=== PATIENT | female | born 2000 | race Hispanic/Latino ===

== ENCOUNTER 2024-02-14 20:36 | Day surgery (SDC) | payer OTHER ==
[2024-02-14 20:58] VITALS: BMI 31.7
[2024-02-14] MEDS ORDERED: hydrALAZINE 20 MG/ML VIAL SLOW IVP PRN (21:21)
== END 2024-02-14 23:05 | disposition home or self-care (01) ==
LOC: CSHERS 20:36 → CSHLD/OP 23:05
PROVIDERS: ATTEND Family Medicine
DX: O47.1 False labor at or after 37 completed weeks of gestation (principal); Z79.899 Other long term (current) drug therapy; Z3A.38 38 weeks gestation of pregnancy

== ENCOUNTER 2024-02-15 01:32 | Inpatient (IN) | payer MEDICAID, OTHER, SELFPAY ==
[2024-02-15 01:57] VITALS: BMI 30.7
[2024-02-15] MEDS ORDERED: hydrALAZINE 20 MG/ML VIAL SLOW IVP PRN ×3 (02:09→12:32)
[2024-02-15] MEDS ORDERED: Lactated Ringer's 1,000 ML IV SCH (02:15)
[2024-02-15] MEDS: fentaNYL 50 mcg/mL 1 mL Vial SLOW IVP SCH (02:24)
[2024-02-15 02:57] LABS: #Basophils 0.05 10x3/uL (0.0-0.2); #Eosinphils 0.63 10x3/uL (0.0-0.5); #Monocytes 0.92 10x3/uL (0.0-1.1); #Neutrophils 9.42 10x3/uL (1.5-8.4); %Basophils 0.4 % (0.0-2.0); %Eosinophils 4.8 % (0.0-6.0); %Lymphocytes 15.2 % (18.0-47.0); %Neutrophils 72.1 % (40.0-75.0); ALT (SGPT) 17 U/L (8-55); AST (SGOT) 16 U/L (5-34); Albumin 3.1 g/dL (3.5-5.0); Alkaline Phosphatase 180 U/L (40-110); Anion Gap 15 mmol/L (10-20); BUN (Urea Nitrogen) Less than 4 mg/dL (7.0-18.7); Bilirubin, Total 0.5 mg/dL (0.2-1.2); Calc. Creatinine Clearance 178 mL/min (70-130); Calcium 8.8 mg/dL (7.8-10.44); Carbon Dioxide 20 mmol/L (22-29); Chloride 107 mmol/L (98-107); Estimated GFR 133; Globulin 3.4 g/dL (2.4-3.5); Glucose 86 mg/dL (70-105); Hematocrit 37.8 % (34.9-44.5); Hemoglobin 13.5 g/dL (12.0-15.5); Mean Corpuscular HGB CONC 35.7 g/dL (32.0-36.0); Mean Corpuscular Volume 81.1 fL (81.6-98.3); Mean Platelet Volume 10.6 fL (7.4-10.4); Platelet Count 237 10x3/uL (150-450); Potassium 3.5 mmol/L (3.5-5.1); Protein, Total 6.5 g/dL (6.0-8.3); RBC Distribution Width 12.7 % (11.5-14.5); Red Blood Cell (RBC) Count 4.66 10x6/uL (3.90-5.03); Sodium 138 mmol/L (136-145); White Blood Cell (WBC) Count 13.1 10x3/uL (3.5-10.5)
[2024-02-15] MEDS ORDERED: Diphenoxylate HCl/Atropine Tablet PO PRN (04:09)
[2024-02-15] MEDS ORDERED: Misoprostol 200 MCG TAB PR PRN (04:09)
[2024-02-15] MEDS ORDERED: Ibuprofen 800 MG TAB PO PRN (04:09)
[2024-02-15] MEDS ORDERED: Carboprost 250 MCG/ML AMP IM PRN (04:09)
[2024-02-15] MEDS ORDERED: Tranexamic Acid 1,000 MG/10 ML VIAL IVP PRN (04:09)
[2024-02-15] MEDS ORDERED: Methylergonovine 0.2 MG/ML VIAL IM PRN (04:09)
[2024-02-15] MEDS ORDERED: Ondansetron PF 4 MG/2 ML Vial IVP PRN ×2 (04:09→12:32)
[2024-02-15] MEDS ORDERED: Promethazine HCl 25 MG/ML VIAL IM PRN ×2 (04:09→12:32)
[2024-02-15] MEDS ORDERED: Oxytocin 30 units/NS 500 ML 500 ML IV SCH (04:15)
[2024-02-15 04:48] LABS: Syphilis Antibody Nonreactive (Nonreactive); Syphilis Antibody Index 0.09 S/CO (<1.00 Non-Reactive)
[2024-02-15 04:49] LABS: HBsAg Index 0.15 S/CO (0-0.99); Hep B Surf Ag - L&D Non-Reactive S/CO (NonReactive)
[2024-02-15] MEDS: Lidocaine 1% (PF) 30 ML VIAL SC PRN (09:45)
[2024-02-15] MEDS: Acetaminophen 500 MG TAB PO PRN (11:27)
[2024-02-15] MEDS: Oxytocin 30 units/NS 500 ML 500 ML IV SCH (11:29)
[2024-02-15] MEDS ORDERED: Boostrix 0.5 ML (Tdap) VIAL (>/=7 yrs of age) IM ONE (12:32)
[2024-02-15] MEDS ORDERED: Bisacodyl 10 MG SUPP PR PRN (12:32)
[2024-02-15] MEDS ORDERED: diphenhydrAMINE 25 MG CAP PO PRN (12:32)
[2024-02-15] MEDS ORDERED: Milk Of Magnesia 30 ML UDCUP PO PRN (12:32)
[2024-02-15] MEDS ORDERED: Lanolin Ointment 7 GM TUBE TOP PRN (12:32)
[2024-02-15] MEDS: Ibuprofen 800 MG TAB PO SCH (13:59)
[2024-02-15] MEDS: Ferrous Sulfate 325 MG TAB PO SCH (14:48)
[2024-02-15] MEDS: fentaNYL 50 mcg/mL 1 mL Vial ONE (18:30)
[2024-02-15] MEDS: Docusate 100 MG CAP PO SCH (21:16)
[2024-02-15] MEDS: HYDROcodone/Acetaminophen 5/325 mg Tablet PO PRN (21:17)
[2024-02-16] MEDS: Prenatal Vitamin 1 TAB PO SCH (08:11)
[2024-02-16 11:50] VITALS: BP 115/64; TEMP 98.3
== END 2024-02-16 17:30 | disposition home or self-care (01) | DRG 807 ==
LOC: CSHLD/OP 01:32 → CSHLD 04:18 → CSHPP 14:12
PROVIDERS: ADMIT Family Medicine; ATTEND Family Medicine
PROC: 10E0XZZ Delivery of Products of Conception, External Approach (ICD-10-PCS; principal; 2024-02-15)
PROC: 10907ZC Drainage of Amniotic Fluid, Therapeutic from Products of Conception, Via Natural or Artificial Opening (ICD-10-PCS; 2024-02-15)
PROC: 0UQMXZZ Repair Vulva, External Approach (ICD-10-PCS; 2024-02-15)
DX: O71.82 Other specified trauma to perineum and vulva (principal); Z37.0 Single live birth; Z3A.38 38 weeks gestation of pregnancy
CPT/HCPCS: 36415; 80053; 85025; 86780; 86850; 86900; 86901; 87340; 99285; J2001; J2590; J3010

== ENCOUNTER 2025-07-30 07:30 | Emergency (ER) | payer MEDICAID, SELFPAY ==
[2025-07-30 08:21] LABS: Glucose, Urine (Dipstick) Normal (Negative); Leukocyte 500 (Negative); Protein, Urine (Dipstick) 15 mg/dl (Neg-Trace); Specific Gravity, Urine 1.010 (1.005-1.030)
[2025-07-30 08:23] LABS: Pregnancy Test - Urine (BHCG) Negative (Negative); Pregu Control Background? CLEAR/WHITE (CLR/WHITE); Pregu Control Bar Appear? YES (CONTROL BAR)
[2025-07-30] MEDS ORDERED: Droperidol 5 MG/2 ML VIAL ONE (08:28)
[2025-07-30 08:31] LABS: #Basophils 0.04 10x3/uL (0.0-0.2); #Eosinophils 0.30 10x3/uL (0.0-0.5); #Monocytes 0.88 10x3/uL (0.0-1.1); #Neutrophils 10.05 10x3/uL (1.5-8.4); %Basophils 0.3 % (0.0-2.0); %Eosinophils 2.3 % (0.0-6.0); %Lymphocytes 12.7 % (18.0-47.0); %Monocytes 6.8 % (0.0-10.0); %Neutrophils 77.4 % (40.0-75.0); Bacteria/HPF 2+ HPF (None Seen); CAUTI Indications for Culture Pelvic or flank pain; Hematocrit 38.7 % (34.9-44.5); Hemoglobin 13.4 g/dL (12.0-15.5); Mean Corpuscular Hemoglobin 28.8 pg (27.0-33.0); Mean Corpuscular Volume 83.2 fL (81.6-98.3); Platelet Count 307 10x3/uL (150-450); RBC/HPF 0-3 HPF (0-3); Red Blood Cell (RBC) Count 4.65 10x6/uL (3.90-5.03); Urine Culture Reflex Yes Yes; WBC/HPF 21-50 HPF (0-3); White Blood Cell (WBC) Count 12.99 10x3/uL (3.5-10.5)
[2025-07-30 08:44] LABS: ALT (SGPT) 26 U/L (Less than 34); AST (SGOT) 20 U/L (11-34); Albumin 4.1 g/dL (3.1-4.5); Alkaline Phosphatase 88 U/L (40-110); Anion Gap 10 mmol/L (10-20); BUN (Urea Nitrogen) 9 mg/dL (7.0-18.7); Bilirubin, Total 0.5 mg/dL (0.3-1.2); Calc. Creatinine Clearance 0 mL/min (70-130); Calcium 8.6 mg/dL (7.8-10.44); Carbon Dioxide 23 mmol/L (22-29); Chloride 108 mmol/L (98-107); Globulin 2.8 g/dL (2.4-3.5); Glucose 98 mg/dL (70-105); Lipase 15 U/L (8-78); Potassium 3.5 mmol/L (3.5-5.1); Sodium 137 mmol/L (136-145)
[2025-07-30] MEDS ORDERED: cefTRIAXone (ROCEPHIN) 1 GM VIAL ONE (09:36)
[2025-07-30 10:04] LABS: INR-International Normal Ratio 0.9; PTT 26.9 sec (22.0-33.0); Prothrombin Time 10.3 sec (9.5-12.1)
[2025-07-30] MEDS ORDERED: Iopamidol 300 61% 100 ML VIAL FS ONE (10:46)
[2025-07-30 17:15] LABS: #Basophils Less than 0.03 10x3/uL (0.0-0.2); #Eosinophils Less than 0.03 10x3/uL (0.0-0.5); #Monocytes 0.44 10x3/uL (0.0-1.1); #Neutrophils 11.33 10x3/uL (1.5-8.4); %Basophils 0.2 % (0.0-2.0); %Eosinophils 0.2 % (0.0-6.0); %Lymphocytes 10.2 % (18.0-47.0); %Monocytes 3.3 % (0.0-10.0); %Neutrophils 85.7 % (40.0-75.0); Hematocrit 40.8 % (34.9-44.5); Hemoglobin 13.8 g/dL (12.0-15.5); Mean Corpuscular Hemoglobin 28.3 pg (27.0-33.0); Mean Corpuscular Volume 83.6 fL (81.6-98.3); Platelet Count 332 10x3/uL (150-450); Red Blood Cell (RBC) Count 4.88 10x6/uL (3.90-5.03); White Blood Cell (WBC) Count 13.20 10x3/uL (3.5-10.5)
== END 2025-07-30 18:23 | disposition home or self-care (01) ==
LOC: CSHERS 07:30
DX: N39.0 Urinary tract infection, site not specified (principal); N28.89 Other specified disorders of kidney and ureter; Z75.8 Other problems related to medical facilities and other health care
CPT/HCPCS: 36415; 74177; 80053; 81001; 81025; 83605; 83690; 85025; 85610; 85730; 86850; 86900; 86901; 87040; 87086; 93005; 96374; 96375; J0696; J1790; Q9967